=== PATIENT | female | born 1955 | race Caucasian/White ===

== ENCOUNTER → 2016-06-19 | Outpatient (CLI) | payer MEDICARE, OTHER ==
[~2016-06-19] MED LIST: ALIGN4 M1 PO; AMLODIPINE BESYL5 MG ORAL; BENAZEPRIL HCL20 MG ORAL; BENTYL10 MG ORAL; BP med; CARAFATE1 G1 ORAL; DEXILANT60 MG ORAL; LINZESS145 MCG PO; METOPROLOL SUCC50 MG ORAL; [UNRECOGNIZED DRUG - OTHER]
--- NOTE | 2016-06-19 15:06 | GI Progress Note ---
Assessment/Plan Problems: (1) Rectal pain ICD Codes: K62.89 - Other specified diseases of anus and rectum SNOMED: 63816250 (2) GERD (gastroesophageal reflux disease) ICD Codes: K21.9 - GERD (gastroesophageal reflux disease) SNOMED: 035055149 (3) Constipation ICD Codes: K59.00 - Constipation SNOMED: 56403127 (4) Abdominal pain ICD Codes: R10.9 - Abdominal pain SNOMED: 51234953 Status: stable Status Narrative Seen with Dr. Fabian. Assessment/Plan ordered anorectal manometry for constipation RTC after results refused laxatives Subjective Subjective constipation, refuses to take laxatives Objective BP 145/80 P 86 WT 158 lbs General Appearance: no apparent distress, alert Cardiovascular: normal rate Respiratory/Chest: normal breath sounds, no respiratory distress Abdominal Exam: normal bowel sounds, non tender, soft Extremities: normal range of motion Anna Taylor N.P. Jun 19, 2016 15:06
[2016-06-19 15:19] VITALS: BP 145/80
== END | disposition home or self-care (01) ==
LOC: PAN 14:05
DX: K21.9 Gastro-esophageal reflux disease without esophagitis (principal); K62.89 Other specified diseases of anus and rectum; K59.00 Constipation, unspecified; R10.9 Unspecified abdominal pain
CPT/HCPCS: 99211

== ENCOUNTER → 2016-08-09 | Outpatient (CLI) | payer MEDICARE, OTHER ==
[2016-08-09 14:32] VITALS: BP 136/107
--- NOTE | 2016-08-09 15:50 | GI Progress Note ---
Assessment/Plan Problems: (1) Abdominal pain ICD Codes: R10.9 - Abdominal pain SNOMED: 39159477 (2) GERD (gastroesophageal reflux disease) ICD Codes: K21.9 - GERD (gastroesophageal reflux disease) SNOMED: 075394376 (3) Rectal pain ICD Codes: K62.89 - Other specified diseases of anus and rectum SNOMED: 64897441 (4) Constipation ICD Codes: K59.00 - Constipation SNOMED: 35889433 Status: unchanged Status Narrative Discussed with Dr. Fabian. Assessment/Plan anorectal manometry for constipation >> perineal descent increased, see chart for full report. rx steroid enema x 7 days rx golytely flush RTC x 2 days if problem persists Subjective Subjective abdominal pain constipation GERD 08/02/16 constipated dulcolax 5mg x 4 rectal supp 08/04/16 BM + Objective Last 24 Hour Vital Signs Date Time Temp Pulse Resp B/P Pulse Ox O2 Delivery O2 Flow Rate FiO2 08/09/16 14:32 97.8 89 16 136/107 General Appearance: no apparent distress, alert Cardiovascular: normal rate Respiratory/Chest: normal breath sounds, no respiratory distress Abdominal Exam: normal bowel sounds, non tender, soft Extremities: normal range of motion Anna Taylor N.P. Aug 09, 2016 15:50
== END | disposition home or self-care (01) ==
LOC: PAN 14:17
DX: R10.9 Unspecified abdominal pain (principal); K21.9 Gastro-esophageal reflux disease without esophagitis; K62.89 Other specified diseases of anus and rectum; K59.00 Constipation, unspecified
CPT/HCPCS: 99211

== ENCOUNTER 2016-12-21 16:17 | Outpatient (CLI) | payer MEDICARE, OTHER | END 2016-12-21 16:45 | disposition home or self-care (01) | LOC: PAN 16:17 | DX: R10.9 Unspecified abdominal pain (principal) | CPT/HCPCS: 99211 ==

== ENCOUNTER 2017-01-30 11:51 | Outpatient (CLI) | payer MEDICARE, OTHER ==
[2017-01-30 12:25] VITALS: BP 130/77
--- NOTE | 2017-01-30 15:54 | GI Progress Note ---
Assessment/Plan Problems: (1) Abdominal pain ICD Codes: R10.9 - Abdominal pain SNOMED: 59346773 (2) GERD (gastroesophageal reflux disease) ICD Codes: K21.9 - GERD (gastroesophageal reflux disease) SNOMED: 508402676 (3) Constipation ICD Codes: K59.00 - Constipation SNOMED: 91010857 (4) PUD (peptic ulcer disease) ICD Codes: K27.9 - Peptic ulcer, site unspecified, unspecified as acute or chronic, without hemorrhage or perforation SNOMED: 56750193 Status: stable Status Narrative Seen with Dr. Fabian. Assessment/Plan weight stable PUD diverticulosis rx Bentyl, Zantac, Nexium RTC x 3 months Subjective Subjective abdominal pain, epigastric report weight loss on home scale Objective Last 24 Hour Vital Signs Date Time Temp Pulse Resp B/P (MAP) Pulse Ox O2 Delivery O2 Flow Rate FiO2 01/30/17 12:25 84 18 130/77 General Appearance: no apparent distress, alert Cardiovascular: normal rate Respiratory/Chest: normal breath sounds, no respiratory distress Abdominal Exam: normal bowel sounds, non tender, soft Extremities: normal range of motion Anna Taylor N.P. Jan 30, 2017 15:54
== END 2017-01-30 12:45 | disposition home or self-care (01) ==
LOC: PAN 11:51
DX: K21.9 Gastro-esophageal reflux disease without esophagitis (principal); K59.00 Constipation, unspecified; R10.9 Unspecified abdominal pain; K27.9 Peptic ulcer, site unspecified, unspecified as acute or chronic, without hemorrhage or perforation
CPT/HCPCS: 99211

== ENCOUNTER 2017-05-28 14:37 | Outpatient (CLI) | payer MEDICARE, OTHER ==
--- NOTE | 2017-05-28 15:17 | GI Progress Note ---
Assessment/Plan Problems: (1) PUD (peptic ulcer disease) ICD Codes: K27.9 - Peptic ulcer, site unspecified, unspecified as acute or chronic, without hemorrhage or perforation SNOMED: 56480263 (2) Abdominal pain ICD Codes: R10.9 - Abdominal pain SNOMED: 80110718 (3) GERD (gastroesophageal reflux disease) ICD Codes: K21.9 - GERD (gastroesophageal reflux disease) SNOMED: 813581931 Status: stable Status Narrative Seen with Dr. Fabian. Assessment/Plan weight stable PUD diverticulosis refuses to take alternative ppi rx Bentyl, Zantac, trial sample Nexium RTC prn Subjective Subjective here for Nexium refill, was refused by insurance. Objective T 97.6 BP 138/86 P 96 94 RA Denies any unintentional weight loss or changes in dietary habits. General Appearance: WD/WN, no apparent distress, alert, overweight Cardiovascular: normal rate Respiratory/Chest: normal breath sounds, no respiratory distress Abdominal Exam: normal bowel sounds, non tender, soft Extremities: normal range of motion, non-tender Anna Taylor N.PDavey May 28, 2017 15:17
== END 2017-05-28 15:11 | disposition home or self-care (01) ==
LOC: PAN 14:37
DX: K27.9 Peptic ulcer, site unspecified, unspecified as acute or chronic, without hemorrhage or perforation (principal); R10.9 Unspecified abdominal pain; K21.9 Gastro-esophageal reflux disease without esophagitis; K57.90 Diverticulosis of intestine, part unspecified, without perforation or abscess without bleeding; E66.3 Overweight
CPT/HCPCS: 99211

== ENCOUNTER 2018-02-20 13:54 | Outpatient (CLI) | payer MEDICARE, OTHER ==
[2018-02-20 14:00] VITALS: BP 139/81
--- NOTE | 2018-02-20 14:40 | GI Progress Note ---
Assessment/Plan Problems: (1) Abdominal pain ICD Codes: R10.9 - Abdominal pain SNOMED: 79424254 (2) GERD (gastroesophageal reflux disease) ICD Codes: K21.9 - GERD (gastroesophageal reflux disease) SNOMED: 535881629 (3) Rectal pain ICD Codes: K62.89 - Other specified diseases of anus and rectum SNOMED: 59834907 (4) Elevated blood pressure ICD Codes: R03.0 - Elevated blood pressure SNOMED: 22009090 (5) PUD (peptic ulcer disease) ICD Codes: K27.9 - Peptic ulcer, site unspecified, unspecified as acute or chronic, without hemorrhage or perforation SNOMED: 25710693 (6) Constipation ICD Codes: K59.00 - Constipation SNOMED: 20115358 Status: stable Status Narrative Seen with Dr. Fabian. Assessment/Plan SIBO >> Xifaxan given Chronic constipation >> refill on linzess, add mineral oil GERD >> dexilant RTC x 3 months The patient was seen and examined at bedside and all new and available data was reviewed in the patients chart. I agree with the above findings, impression and plan. (Patient seen earlier today. Signature stamp does not reflect patient encounter time.). - Aaron Fabian MD Subjective Subjective R sided abdominal pain GERD, takes zantac with minimal releif smelly BM feels like she has random fevers Objective T 97.8 Bp 139/81 P 81 94 RA General Appearance: WD/WN, no apparent distress, alert Cardiovascular: normal rate Respiratory/Chest: normal breath sounds, no respiratory distress Abdominal Exam: normal bowel sounds, non tender, soft Extremities: normal range of motion, non-tender Ralph Taylor [employer] Feb 20, 2018 14:40
[2018-02-21] MEDS ORDERED: LINZESS145 MCG PO (12:09)
[2018-02-21] MEDS ORDERED: PROBIOTIC1 EAC2 PO (12:09)
[2018-02-21] MEDS ORDERED: METOPROLOL SUCC50 MG ORAL (12:09)
[2018-02-21] MEDS ORDERED: RANITIDINE HCL150 MG ORAL (12:09)
[2018-02-21] MEDS ORDERED: ATORVASTATIN CA20 MG ORAL (12:09)
== END 2018-02-20 14:24 | disposition home or self-care (01) ==
LOC: PAN 13:54
DX: K21.9 Gastro-esophageal reflux disease without esophagitis (principal); K62.89 Other specified diseases of anus and rectum; R03.0 Elevated blood-pressure reading, without diagnosis of hypertension; K27.9 Peptic ulcer, site unspecified, unspecified as acute or chronic, without hemorrhage or perforation; K59.00 Constipation, unspecified

== ENCOUNTER 2018-04-11 14:51 | Outpatient (CLI) | payer MEDICARE, OTHER ==
[~2018-04-11 14:51] MED LIST changes: +ATORVASTATIN CA20 MG ORAL; +PROBIOTIC1 EAC2 PO; +RANITIDINE HCL150 MG ORAL
--- NOTE | 2018-04-11 15:59 | GI Progress Note ---
Assessment/Plan Problems: (1) Abdominal bloating ICD Codes: R14.0 - Abdominal distension (gaseous) SNOMED: 112870827 (2) Abdominal pain ICD Codes: R10.9 - Abdominal pain SNOMED: 88417253 (3) GERD (gastroesophageal reflux disease) ICD Codes: K21.9 - GERD (gastroesophageal reflux disease) SNOMED: 570952316 Status: stable Status Narrative Seen with Dr. Fabian. Assessment/Plan Extensive discussion with patient regarding POC. abdominal U/S cont dexilant RTC after imaging study The patient was seen and examined at bedside and all new and available data was reviewed in the patients chart. I agree with the above findings, impression and plan. (Patient seen earlier today. Signature stamp does not reflect patient encounter time.). - Aaron Fabian MD Subjective Subjective GERD, on Dexilant Constipation, on Linzess abdominal bloating, s/p xifaxan Objective T 97.8 BP 134/75 P 93 93 RA General Appearance: WD/WN, no apparent distress, alert Cardiovascular: normal rate Respiratory/Chest: normal breath sounds, no respiratory distress Abdominal Exam: normal bowel sounds, non tender, soft Extremities: normal range of motion, non-tender Ralph Taylor NP Apr 11, 2018 15:59
[2018-04-11 16:10] VITALS: BP 134/75
== END 2018-04-11 15:21 | disposition home or self-care (01) ==
LOC: PAN 14:51
DX: R14.0 Abdominal distension (gaseous) (principal); K21.9 Gastro-esophageal reflux disease without esophagitis; K59.00 Constipation, unspecified
CPT/HCPCS: 99213

== ENCOUNTER 2018-05-02 14:20 | Outpatient (CLI) | payer MEDICARE, OTHER ==
[2018-05-02 14:30] VITALS: BP 134/79
--- NOTE | 2018-05-02 15:04 | GI Progress Note ---
Assessment/Plan Problems: (1) Small intestinal bacterial overgrowth ICD Codes: K63.89 - Other specified diseases of intestine SNOMED: 937235607 (2) GERD (gastroesophageal reflux disease) ICD Codes: K21.9 - GERD (gastroesophageal reflux disease) SNOMED: 723633556 (3) Abdominal pain ICD Codes: R10.9 - Abdominal pain SNOMED: 93084276 (4) Abdominal bloating ICD Codes: R14.0 - Abdominal distension (gaseous) SNOMED: 801450214 Status: stable Status Narrative Seen with Dr. Fabian. Assessment/Plan fu abdominal U/S cont dexilant RTC after imaging study The patient was seen and examined at bedside and all new and available data was reviewed in the patients chart. I agree with the above findings, impression and plan. (Patient seen earlier today. Signature stamp does not reflect patient encounter time.). - Aaron Fabian MD Subjective Subjective Abdominal pain Objective Last 24 Hour Vital Signs Date Time Temp Pulse Resp B/P (MAP) Pulse Ox O2 Delivery O2 Flow Rate FiO2 05/02/18 14:30 84 134/79 97 General Appearance: WD/WN, no apparent distress, alert Cardiovascular: normal rate Respiratory/Chest: normal breath sounds, no respiratory distress Abdominal Exam: normal bowel sounds, non tender, soft Extremities: normal range of motion, non-tender Ralph Taylor NP May 02, 2018 15:04
== END 2018-05-02 14:50 | disposition home or self-care (01) ==
LOC: PAN 14:20
DX: K63.89 Other specified diseases of intestine (principal); K21.9 Gastro-esophageal reflux disease without esophagitis; R14.0 Abdominal distension (gaseous)
CPT/HCPCS: 99212